=== PATIENT | male | born 1995 | race Caucasian/White ===

== ENCOUNTER 2016-08-25 14:45 | Emergency (ER) | payer OTHER ==
[~2016-08-25] VITALS: Ht 182.9 cm; Wt 95.3 kg
[2016-08-25 15:21] VITALS: BP 159/79
[2016-08-25] MEDS ORDERED: IBUPROFEN 600 MG TABLET PO ONE (15:30)
[2016-08-25] MEDS ORDERED: IBUPROFEN 200 MG TABLET ONE (15:31)
== END 2016-08-25 16:34 | disposition home or self-care (01) ==
LOC: ER 14:54
DX: S60.222A Contusion of left hand, initial encounter (principal); F42.8 Other obsessive-compulsive disorder; F32.9 Major depressive disorder, single episode, unspecified; V49.49XA Driver injured in collision with other motor vehicles in traffic accident, initial encounter; Y93.89 Activity, other specified; Y92.89 Other specified places as the place of occurrence of the external cause; Y99.9 Unspecified external cause status
CPT/HCPCS: 73130; 99284; A4606; Z7610